=== PATIENT | female | born 1990 | race American Indian/Alaskan Native ===

== ENCOUNTER 2019-10-03 21:43 | Emergency (ER) | payer OTHER ==
[~2019-10-03] VITALS: Ht 180.3 cm; Wt 117.9 kg
--- OUTSIDE RECORDS SUMMARY | ~2019-10-03 | XMS | Encounter Summary ---
Demographics + + + | Address | [address] | | | [place] [address] | + + + | Home Phone | | + + + | Preferred Language | Unknown | + + + | Marital Status | Unknown | + + + | Yarsanism Affiliation | Unknown | + + + | Race | Unknown | + + + | Ethnic Group | Unknown | + + + Author + + + | Author | [facility] | | | and [place] | + + + | Organization | [facility] | | | and [place] | + + + | Address | Unknown | + + + | Phone | Unavailable | + + + Support + + +---------+ + | Name | Relationship | Address | Phone | + + +---------+ + | María Jorgensen | ECON | Unknown | | + + +---------+ + | María Jorgensen | ECON | Unknown | | + + +---------+ + Care Team Providers + +------+ + | Care Mix Chemist Name | Role | Phone | + +------+ + PCP | Unavailable | + +------+ + Encounter Details +--------+ + + + + | Date | Type | Department | Care Team | Description | +--------+ + + + + | 11/18/ | Orders Only | [facility] | Shannan Mtz S, | Lumbar radiculopathy | | 2013 | | 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 | + + +---------+ + + + + | Sex Assigned at | Date Recorded | | | | + + + | Not on file | | + + + documented as of this encounter Plan of Treatment Not on filedocumented as of this encounter Results FL EVY Lumbar Transforaminal (12/16/2013 1:18 PM PDT) + + | Specimen | + + | | + + + + + | Narrative | Performed At | + + + | 12/16/2013 Bilateral Transforaminal Epidural Steroid Injections | [facility] | | Diagnosis: Lumbar radiculopathy ICD-9 Code 724.4 Cher | [facility] | | Shana Patel presents to the fluoroscopy suite for | [facility] | | fluoroscopically-guided bilateral L5-S1 transforaminal epidural | - IMAGING | | steroid injections as part of conservative management for chronic | | | pain with lumbar radiculopathy and degenerative disk disease. After | | | informed consent was obtained, the patient lay in the prone position | | | on the fluoroscopy table. The areas were identified under | | | fluoroscopic guidance. The areas were prepped and draped in sterile | | | fashion. A 25-gauge, 1.5-inch needle was inserted into each region | | | and approximately 3 mL of buffered 1% lidocaine was infused. Then, a | | | 22-gauge spinal needle was inserted into the posterior superior | | | transforaminal space bilaterally and advanced into the epidural | | | space under fluoroscopic guidance. Confirmation into the epidural | | | space was obtained with infusion of approximately 1 mL of Omnipaque | | | contrast which showed epidural flow as well as nerve sheath flow. | | | Then, a combination of 2 mL of 1% lidocaine and 2 mL of 6 mg/mL | | | Celestone was infused, divided between the two sides. The patient | | | tolerated the procedure well without complications. Pre- and | | | post-procedure blood pressures were stable. The patient was given | | | verbal as well as written follow-up instructions. Prior to the | | | start of the procedure, the following were performed and/or | | | verified, including correct patient identity, correct site/side marked | | | and visible, agreement on the procedure to be done, correct patient | | | positioning and an accurate procedure consent form. Any safety | | | precautions based on clinical history and/or medication use have | | | been addressed. I personally performed the procedure above. | | | Estimated blood loss: Minimal Complications: None Findings: As | | | expected Anesthesia: Local 1% Lidocaine | | + + + + + | Procedure Note | + + | Jose J Morris MD - 12/16/2013 1:41 PM PDT 12/16/2013ilateral Transforaminal | | Epidural Steroid InjectionsDiagnosis: Lumbar radiculopathyICD-9 Code 724.4Camillerahul Saldana | | Amanda presents to the fluoroscopy suite for fluoroscopically-guided bilateral | | L5-S1 transforaminal epidural steroid injections as part of conservative management for | | chronic pain with lumbar radiculopathy and degenerative disk disease. After informed | | consent was obtained, the patient lay in the prone position on the fluoroscopy table. | | The areas were identified under fluoroscopic guidance. The areas were prepped and draped | | in sterile fashion. A 25-gauge, 1.5-inch needle was inserted into each region and | | approximately 3 mL of buffered 1% lidocaine was infused. Then, a 22-gauge spinal needle | | was inserted into the posterior superior transforaminal space bilaterally and advanced | | into the epidural space under fluoroscopic guidance. Confirmation into the epidural | | space was obtained with infusion of approximately 1 mL of Omnipaque contrast which | | showed epidural flow as well as nerve sheath flow. Then, a combination of 2 mL of 1% | | lidocaine and 2 mL of 6 mg/mL Celestone was infused, divided between the two sides. The | | patient tolerated the procedure well without complications. Pre- and post-procedure | | blood pressures were stable. The patient was given verbal as well as written follow-up | | instructions. Prior to the start of the procedure, the following were performed and/or | | verified, including correct patient identity, correct site/side marked and visible, | | agreement on the procedure to be done, correct patient positioning and an accurate | | procedure consent form. Any safety precautions based on clinical history and/or | | medication use have been addressed. I personally performed the procedure above.Estimated | | blood loss: MinimalComplications: NoneFindings: As expectedAnesthesia: Local 1% | | Lidocaine | + + + + + + + | Performing | Address | City/State/Zipcode | Phone Number | | Organization | | | | + + + + + | [facility] | [address] | [place] | [phone] | | [facility] | | [address] | | | - IMAGING | | | | + + + + + documented in this encounter Visit Diagnoses + + | Diagnosis | + + | Lumbar radiculopathy - Primary Thoracic or lumbosacral neuritis or radiculitis, | | unspecified | + + documented in this encounter"
--- OUTSIDE RECORDS SUMMARY | ~2019-10-03 | XMS | Encounter Summary ---
Demographics + + + | Address | [address] | | | [place] [address] | + + + | Home Phone | | + + + | Preferred Language | Unknown | + + + | Marital Status | Unknown | + + + | Buddhism Affiliation | Unknown | + + + | Race | Unknown | + + + | Ethnic Group | Unknown | + + + Author + + + | Author | [facility] [place] | | | and [place] | + + + | Organization | [facility] [place] | | | and [place] | [...] Team Providers + +------+ + | Care Substation Engineer Name | Role | Phone | + +------+ + PCP | Unavailable | + +------+ + Encounter Details +--------+ + + + + | Date | Type | Department | Care Team | Description | +--------+ + + + + | 12/02/ | Hospital | [place] [facility] | [facility] | | | 2014 | Encounter | [facility] | [address] | | | | | C[facility] [address] | [address] | | | | | [address] [place], [place] | [place] [address] | | | | | [address] | [phone] | | | | | [phone] | | | +--------+ + + + [...] + + documented as of this encounter Medications at Time of Discharge + + + +---------+--------+ + | Medication | Sig | Dispensed | Refills | Start | End Date | | | | | | Date | | + + + +---------+--------+ + | FERROUS SULFATE | by Does not apply | | 0 | | | | | route Daily. | | | | | + + + +---------+--------+ + | Glucosamine HCl | Take by mouth 2 | | 0 | | | | (GLUCOSAMINE PO) | times daily. | | | | | + + + +---------+--------+ + | NAPROXEN | 500 mg by Does not | | 0 | | | | | apply route 2 times | | | | | | | daily. | | | | | + + + +---------+--------+ + | Vincent 3-6-9 Fatty | Take by mouth 2 | | 0 | | | | Acids (OMEGA 3-6-9 | times daily. | | | | | | COMPLEX PO) | | | | | | + + + +---------+--------+ + | tizanidine | Take 2 mg by mouth | | 0 | | | | (ZANAFLEX) 2 MG | every 6 hours as | | | | | | tablet | needed. | | | | | + + + +---------+--------+ + documented as of this encounter Plan of Treatment Not on filedocumented as of this encounter Visit Diagnoses Not on filedocumented in this encounter"
--- OUTSIDE RECORDS SUMMARY | ~2019-10-03 | XMS | Encounter Summary ---
Demographics + + + | Address | [address] | | | [place] [address] | + + + | Home Phone | | + + + | Preferred Language | Unknown | + + + | Marital Status | Unknown | + + + | Worship Affiliation | Unknown | + + + | Race | Unknown | + + + | Ethnic Group | Unknown | + + + Author + + + | Author | [facility] | | | and [place] | + + + | Organization | [facility] | | | and [place] | [...] Team Providers + +------+ + | Care Fugitive Investigator Name | Role | Phone | + +------+ + | Ignacio Briggs PA-C | PCP | | + +------+ + Encounter Details +--------+ + + + + | Date | Type | Department | Care Team | Description | +--------+ + + + + | 07/02/ | Orders Only | [facility] | José Miguel Hernandez | | | 2018 | | [facility] | [address] | | | | [address] | [place] [address] | | | | | [place], [place] | [phone] | | | | | [address] | | | | | | [phone] | | | +--------+ + + + [...] Not on filedocumented as of this encounter Procedures + +--------+ + + + | Procedure Name | Priori | Date/Time | Associated Diagnosis | Comments | | | ty | | | | + +--------+ + + + | XR LUMBAR SPINE 4 + | Routin | 07/02/2018 | | Results for this | | VW | e | 10:41 AM | | procedure are in the | | | | PDT | | results section. | + +--------+ + + + documented in this encounter Results XR Lumbar Spine 4 + Vw (07/02/2018 10:41 AM PDT) + + | Specimen | + + | | + + + + + | Impressions | Performed At | + + + | Mild degenerative spondylosis of the lumbar spine with moderate to | | | severe decrease in disc height L5-S1. There is no significant | | | subluxation between the flexion and extension views. Signed by: | | | Clark Romero, Wade Sign Date/Time: 07/02/2018 5:00 PM | | + + + + + + | Narrative | Performed At | + + + | LUMBAR SPINE FOUR VIEWS INCLUDING BENDING VIEWS CLINICAL | | | INFORMATION: Chronic pain for ten years. COMPARISON: MRI LUMBAR | | | SPINE WO CONTRAST (03/15/2018); CRLSPINE (12/20/2017); FINDINGS: | | | There is normal-appearing alignment of the lumbar spine. There is | | | moderate to severe decrease in disc height L5-S1. There is mild | | | degenerative endplate spondylosis with spurring greatest at L5-S1. | | | There is mild degenerative facet spondylosis with hypertrophy. | | | Vertebral body height appears maintained. There is no significant | | | subluxation between the flexion and extension views. The visualized | | | sacral ala and ribs appear intact. | | + + + + + | Procedure Note | + + | Henry, Rad Conversion - 11/14/2018 2:07 PM PDT LUMBAR SPINE FOUR VIEWS INCLUDING | | BENDING VIEWSCLINICAL INFORMATION:Chronic pain for ten years.COMPARISON:MRI LUMBAR SPINE | | WO CONTRAST (03/15/2018); CRLSPINE (12/20/2017);FINDINGS:There is normal-appearing | | alignment of the lumbar spine. There ismoderate to severe decrease in disc height | | L5-S1. There is milddegenerative endplate spondylosis with spurring greatest at | | L5-S1.There is mild degenerative facet spondylosis with hypertrophy.Vertebral body | | height appears maintained. There is no significantsubluxation between the flexion and | | extension views. The visualizedsacral ala and ribs appear intact.IMPRESSION: Mild | | degenerative spondylosis of the lumbar spine with moderate tosevere decrease in disc | | height L5-S1. There is no significantsubluxation between the flexion and extension | | views.Signed by: Clark Romero KennethSign Date/Time: 07/02/2018 5:00 PM | |subluxation between the flexion and extension views. The visualized | |sacral ala and ribs appear intact. | |IMPRESSION: | |Mild degenerative spondylosis of the lumbar spine with moderate to | |severe decrease in disc height L5-S1. There is no significant | |subluxation between the flexion and extension views. | |Signed by: Clark Romero Kenneth | |Sign Date/Time: 07/02/2018 5:00 PM | + + documented in this encounter Visit Diagnoses Not on filedocumented in this encounter"
--- OUTSIDE RECORDS SUMMARY | ~2019-10-03 | XMS | Encounter Summary ---
Demographics + + + | Address | [address] | | | [place] [address] | + + + | Home Phone | | + + + | Preferred Language | Unknown | + + + | Marital Status | Unknown | + + + | Jain Affiliation | Unknown | + + + | Race | Unknown | + + + | Ethnic Group | Unknown | + + + Author + + + | Author | [facility] | | | and [place] | + + + | Organization | [facility] | | | and [place] | [...] Team Providers + +------+ + | Care Director Of Sales Name | Role | Phone | + +------+ + PCP | Unavailable | + +------+ + Reason for Visit + + + | Reason | Comments | + + + | Back Pain | mid to low back pain radiating to bilateral legs | + + + Evaluate & Treat (Routine) +--------+--------+ + + + + | Status | Reason | Specialty | Diagnoses / | Referred By | Referred To | | | | | Procedures | Contact | Contact | +--------+--------+ + + + + | Closed | | Physical | Diagnoses | [place], | Flakito Colon | | | | Medicine and | Low back | Ignacio Cárdenas, | Fatmata Moore MD [address] | | | | Rehabilitatio | pain | PA-C [address] | [address] | | | | n | | [place] | [place], | | | | | | [place] | [place] [address] | | | | | | [place], | Phone: | | | | | | [place] [address] | [phone] | | | | | | Phone: | Fax: | | | | | | [phone] | [phone] | | | | | | Fax: | | | | | | | [phone] | | +--------+--------+ + + + + Encounter Details +--------+---------+ + + + | Date | Type | Department | Care Team | Description | +--------+---------+ + + + | 11/04/ | Office | [facility] | Flakito Colon, | Lumbalgia (Primary | | 2013 | Visit | PHYSIATRY [address] | MD [address] | Dx); Degenerative | | | | [address] | [place] | lumbar disc; Lumbar | | | | [place] | [address] | radiculopathy; | | | | [address] | | Lumbar facet | | | | [phone] | | arthropathy; Morning | | | | | | joint stiffness of | | | | | | hand, bilateral | +--------+---------+ + + + Social History + +-------+ [...] + + documented as of this encounter Last Filed Vital Signs + + + + + | Vital Sign | Reading | Time Taken | Comments | + + + + + | Blood Pressure | 120/77 | 11/04/2013 9:21 AM | | | | | PDT | | + + + + + | Pulse | 63 | 11/04/2013 9:21 AM | | | | | PDT | | + + + + + | Temperature | - | - | | + + + + + | Respiratory Rate | 14 | 11/04/2013 9:21 AM | | | | | PDT | | + + + + + | Oxygen Saturation | - | - | | + + + + + | Inhaled Oxygen | - | - | | | Concentration | | | | + + + + + | Weight | 97.1 kg (214 lb) | 11/04/2013 9:21 AM | | | | | PDT | | + + + + + | Height | 180.3 cm (5' 11") | 11/04/2013 9:21 AM | | | | | PDT | | + + + + + | Body Mass Index | 29.85 | 11/04/2013 9:21 AM | | | | | PDT | | + + + + + documented in this encounter Patient Instructions Patient Instructions Flakito Colon MD - 11/04/2013 10:20 AM PDTContinue exercise as outl ined by physical therapy. Laboratory tests have been requested. Please go to the lab to complete your laboratory royce ting. The results of your laboratory testing will be reviewed at your next appointment. If your labratory results demonstrate any emergent results the clinic will contact you. Please attend the injection appointment with Jose J Morris MD. If his office has not co ntacted you within one week, to schedule the injection, please contact my clinic. Your inje ction will be performed at [facility]. Please take note of weather your pain is significantly reduced in the hours immediately following the injecti on. Return to the clinic in 6-8 weeks to review labs and response to injections. documented in this encounter Progress Notes Flakito Colon MD - 11/04/2013 10:22 AM PDTThis office note has been dictated. Job ID# [id number] signed by Flakito Colon MD at 11/04/2013 6:53 PM Barbra Gavin - 11/04/2013 9:22 AM PDTc/o mid to low back pain into bilateral legs. 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 Went to PT 02/2013-03/2013 which relieved pain, but w as suggested she follow up with a polyethylene combiner. Electronically signed by Barbra Vital at 02/2014 6:53 PM Flakito Redd MD - 11/04/2013 12:00 AM PDT [facility] [address] [place] [address] FAX: [phone] OFFICE VISIT PHYSICAL MEDICINE REHABILITATION CONSULT CONSULT REQUESTED BY: FARIBA Rodriguez. REPORTED CURRENT PRIMARY CARE PROVIDER: Chase Brigsg MD. DATE OF SERVICE: 11/04/2013. PATIENT IDENTIFICATION: A 23-year-old female with back pain. HISTORY OF PRESENT ILLNESS: Ms Patel was referred by Melony Hardin. Meolny Hardin has recently moved from the [facility]. Ms Patel reports that she anticip ates that her new primary care provider will be Chase Briggs MD. She indicates that she has had back pain since she was a teenager. She indicates that it carlson s always been mild on and off. She indicates that back pain has been acutely worse over the last 9 months. She indicates that pain has been constant over the last 9 months. Pain vari es in intensity. Pain is a 6/10 on a numerical pain scale. She indicates that she had physi tea therapy in 02/2013 with some benefit, but ultimately pain still has persisted. Pain is increased with sitting down and standing up, changing from position to position, and pain i s increased with reaching and twisting, pain is reduced with heat, ice, tramadol, Vicodin, muscle relaxers, and naproxen. She indicates that pain radiates from the back into both lower extremities. She indicates t hat her legs feel heavy and sore. She indicates that the physical therapist had seen her an d wanted her to pass along that she had a few beats of clonus in the left leg. She indicates that she has pain in the thighs bilaterally, forelegs and feet. She reports intermittent numbness and paresthesia in the toes of both feet. She reports a feeling of we akness, which she describes as fatigue in her leg. She denies bowel or bladder incontinence. She denies saddle anesthesia. She has had physical therapy. She has never had surgery, interventional injections, acupunc ture treatments for her back. She did try seeing a chiropractor for 2 to 3 months in 2011 w ithout substantial long-term pain relief for her back. She indicates that she would like to move away from taking any medications for her back pain. She indicates that she is looking for a fix, some way to treat her back pain and help it go away. She reports that she has also had joint pain and stiffness in her joints throughout the bod y. She reports that she has had hand joint stiffness. She indicates that all the joints in her fingers have been very stiff at times. She indicates that there have been days where th e stiffness is so great that she could not bend the fingers in the hands at all. She report s that when stiffness is greatest, it is usually in the morning and less towards the evenin g. She denies any warmth, redness, or swelling in the hand joints. She denies a family hist ory of rheumatoid arthritis. ALLERGIES: NO KNOWN DRUG ALLERGIES. CURRENT MEDICATIONS 1. Ferrous sulfate daily. 2. Glucosamine daily. 3. Naproxen 500 mg twice daily. 4. Tyler-3 fatty acids 2 times daily. 5. Zanaflex 2 mg q.8h. p.r.n. PAST MEDICAL HISTORY: She denies any medical problems. She denies history of high blood pr essure, high cholesterol, diabetes, thyroid disease, etc. PAST SURGICAL HISTORY: She has never had any back surgery. Only surgery has been extraction of wisdom teeth. She has never had tonsillectomy, appendectomy, etc. FAMILY MEDICAL HISTORY: Father's medical history is unknown. She is not in contact with fa Watsi, father is in his 50s. Mother is alive around age 48 with a history of diabetes, high cholesterol, and osteoporosis. Maternal grandmother had history of cervical cancer. 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 She does not smoke. She indicates that she may drink 2 alcoholic beverages per month at most. She denies use of illicit drugs. REVIEW OF SYSTEMS: Ms Patel denies nausea, vomiting, diarrhea, constipation, fev er, chills, shortness of breath, or chest pain. She denies skin breakdown or rash. All othe r review of systems negative. PHYSICAL EXAMINATION VITAL SIGNS: Heart rate 63, respiratory rate 14, blood pressure 120/77, weight 214 pounds, height 5 feet 11 inches. GENERAL: No acute distress. Alert and oriented to person, place, time, and situation. HEEN T: Extraocular muscles intact. Sclerae clear. NECK: Normal range of motion. Spurling's test negative. Axial loading test negative. HEART : Regular rate and rhythm. No murmurs, no gallops. LUNGS: Clear to auscultation. No wheezing, no crackles. ABDOMEN: Nontender. Positive for bowel sounds. Mild obesity. BACK: Tenderness to palpation over lumbar paraspinal muscles and lumbar bony spine. Seated straight leg raise positive b ilaterally. Raphael's test negative bilaterally. EXTREMITIES: Exam reveals no clubbing, cya nosis, or edema in all 4 extremities. There is some stiffness in the hand joints. No signif icant synovial thickening noted on today's examination in the proximal interphalangeal join ts. No osteophytes noted in distal interphalangeal joints. No nodules noted within the fore arms bilaterally. NEUROLOGICAL: Demonstrates intact memory, concentration, and speech. Cranial nerves intact. Sensory is reduced over L5 dermatome in both lower extremities. There is weakness in lower extremities with 4/5 ankle dorsiflexion, extensor hallucis longus, and knee flexion streng th bilaterally. There is 5/5 hip flexion, ankle plantar flexion, and knee extension in both lower extremities. Gait is steady, mildly antalgic. Romberg test negative. Coordination in tact in all 4 extremities. Muscle tone normal in major muscle groups of all 4 extremities. DATABASE: Thoracic spine x-rays, 10/2010, imaging personally reviewed by me, demonstrates minimal early degenerative disk disease, bone spur anterior at T12. Minimal nonreactive disk space narrowing at L5-S1. Lumbar spine MRI from 08/22/2013, imaging personally reviewed by me, demonstrates degenerat mary disk disease at L4-5 and L5-S1, with mild neural foraminal narrowing at L4-L5 and minim al narrowing at L5-S1. There is facet joint synovial swelling at L5-S1 bilaterally. ASSESSMENT 1. LUMBALGIA, ICD-9 724.2. 2. LUMBAR DEGENERATIVE DISK, GREATEST AT L5-S1 AND LESSER DEGREE AT L4-5, ICD-9 722.52. 3. CLINICAL PRESENTATION OF BILATERAL L5 RADICULOPATHY, ICD-9 724.4. 4. LUMBAR FACET ARTHRITIS AT L5-S1 BILATERALLY, ICD-9 721.3. 5. STIFFNESS OF THE HAND JOINTS BILATERALLY, WORSE IN THE MORNING, ICD-9 719.54. PLAN: Ms Patel's reported pain throughout joints in the body, especially hand s tiffness, worse in the morning, raises question of rheumatoid arthritis. Individuals with r heumatoid arthritis may be more likely to have back pain, facet joint swelling, etc. At this time, I am requesting laboratory workup for rheumatoid arthritis. Laboratory testin g will include rheumatoid factor, anti-CCP, DILLAN, sedimentation rate, CMP, and CBC. She has been asked to continue exercises as outlined by previous physical therapy. We discu ssed that this can be beneficial over time at stabilizing lumbar back with core strengtheni ng. It is felt that a majority of her symptoms are radicular in nature with numbness and tingl ing into the legs, weakness in the lower extremities, pain radiating from back to the lower extremities. For this reason, she will have diagnostic and therapeutic bilateral L5-S1 tr ansforaminal epidural steroid injections. These should capture and treat any radicular symp toms coming from L4 or L5 levels. She will return to the clinic in 6 to 8 weeks to review the results of her laboratory testi ng, continue home exercise program, and epidural steroid injections. If these injections ar e not helpful, future treatment considerations may include lumbar facet injections at L5-S1 for lumbar facet arthritis. If laboratory tests returned as abnormal, may request hand x-r ays and rheumatology consult. Today, we discussed weight loss through diet and exercise. We discussed weight and its impa ct on degenerative disk disease. She was discouraged from ever starting a life of smoking. We discussed tobacco use and its impact on degenerative disk disease. Greater than 50 minutes was spent avie-hi-gljl today with Ms Patel, over half of which was spent formulating and discussing her medical treatment plan. Thank you for allowing me to be involved in the care of your patient. If you have any quest ions regarding the care of Ms Patel, please do not hesitate to call. CC: Melony Hardin, [facility] Flakito Colon Jr, MD BANDY / KMT JOB #: [id number] signed by Flakito Colon MD at 11/05/2013 2:35 PM PDTdocumen arsalan in this encounter Miscellaneous Notes Miscellaneous - ONBASE SCAN [facility] - 11/04/2013 12:00 AM PDT iscellaneous - ONBASE SCAN [facility] - 11/04/2013 12:00 AM PDTEle ctronically signed by Asim Saravia at 11/10/2013 2:01 PM PDTdocumented in this encounter Plan of Treatment + +------+--------+ + + | Name | Type | Priori | Associated Diagnoses | Order Schedule | | | | ty | | | + +------+--------+ + + | Rheumatoid Factor, | Lab | Routin | Morning joint | Expected: | | Quant | | e | stiffness of hand, | 11/04/2013, Expires: | | | | | bilateral | 11/04/2014 | + +------+--------+ + + | Cyclic Citrullinated | Lab | Routin | Morning joint | 1 Occurrences | | Peptide Ab, IgG | | e | stiffness of hand, | starting 11/04/2013 | | | | | bilateral | until 11/04/2014 | + +------+--------+ + + | Sedimentation Rate | Lab | Routin | Morning joint | Expected: | | | | e | stiffness of hand, | 11/04/2013, Expires: | | | | | bilateral | 11/04/2014 | + +------+--------+ + + | DILLAN Screen, Qual, | Lab | Routin | Morning joint | 1 Occurrences | | Reflex | | e | stiffness of hand, | starting 11/04/2013 | | | | | bilateral | until 11/04/2014 | + +------+--------+ + + | CBC with | Lab | Routin | Morning joint | Expected: | | Differential | | e | stiffness of hand, | 11/04/2013, Expires: | | | | | bilateral | 11/04/2014 | + +------+--------+ + + | Comprehensive | Lab | Routin | Morning joint | Expected: | | Metabolic Panel | | e | stiffness of hand, | 11/04/2013, Expires: | | | | | bilateral | 11/04/2014 | + +------+--------+ + + documented as of this encounter Visit Diagnoses + + | Diagnosis | + + | Lumbalgia - Primary Lumbago | + + | Degenerative lumbar disc Degeneration of lumbar or lumbosacral intervertebral disc | + + | Lumbar radiculopathy Thoracic or lumbosacral neuritis or radiculitis, unspecified | + + | Lumbar facet arthropathy Lumbosacral spondylosis without myelopathy | + + | Morning joint stiffness of hand, bilateral | + + documented in this encounter
--- OUTSIDE RECORDS SUMMARY | ~2019-10-03 | XMS | Encounter Summary ---
Demographics + + + | Address | [address] | | | [place] [address] | + + + | Home Phone | | + + + | Preferred Language | Unknown | + + + | Marital Status | Unknown | + + + | Catholic Affiliation | Unknown | + + + | Race | Unknown | + + + | Ethnic Group | Unknown | + + + Author + + + | Author | [facility] | | | and [place] | + + + | Organization | [facility] | | | and [place] | [...] Team Providers + +------+ + | Care Land Degradation Analyst Name | Role | Phone | + +------+ + | Ignacio Briggs PA-C | PCP | | + +------+ + Encounter Details +--------+ + + + + | Date | Type | Department | Care Team | Description | +--------+ + + + + | 07/02/ | Orders Only | [facility] | Conversion | | | 2019 | | CONVERSION [address] | Transaction, | | | | | [address] | Provider Unknown | | | | | [place], [place] | [phone] | | | | | [address] | | | | | | [phone] | | | +--------+ + + + [...]
--- OUTSIDE RECORDS SUMMARY | ~2019-10-03 | XMS | Encounter Summary ---
Demographics + + + | Address | [address] | | | [place] [address] | + + + | Home Phone | | + + + | Preferred Language | Unknown | + + + | Marital Status | Unknown | + + + | Orthodoxy Affiliation | Unknown | + + + | Race | Unknown | + + + | Ethnic Group | Unknown | + + + Author + + + | Author | [facility] | | | and [place] | + + + | Organization | [facility] | | | and [place] [...] Team Providers + +------+ + | Care Customer Service Security Officer Name | Role | Phone | + +------+ + PCP | Unavailable | + +------+ + Reason for Visit +--------+--------+ + | Reason | Onset | Comments | | | Date | | +--------+--------+ + | Other | 11/06/ | | | | 2014 | | +--------+--------+ + Encounter Details +--------+ + + + + | Date | Type | Department | Care Team | Description | +--------+ + + + + | 11/06/ | Telephone | [facility] | Flakito Colon, | Other | | 2013 | | PHYSIATRY [address] | MD [address] | | | | | [address] | [place], [place] | | | | | [place], [place] | [address] | | | | | [address] | | | | | | [phone] | | | +--------+ + + + [...] + + documented as of this encounter Miscellaneous Notes Telephone Encounter - Mali Mackenzie RN - 11/06/2013 5:01 PM PDTFaxed lab orders [facility] Called pt to let her know. Left VM elephone Encounter - Fioan Rojas - 11/06/2013 11:09 AM PDTPatient called to ask if she can have her lab orders sent to the [facility]. She would also like to know what the next step is after she gets her labs drawn. She's hoping to schedule a cortisone injection ones the results from the labs are back. Please ca ll. [phone] signed by Fiona Rojas at 11/06/2013 11:11 AM PDTdocumented in this encounter Plan of Treatment Not on filedocumented as of this encounter Visit Diagnoses Not on filedocumented in this encounter"
--- OUTSIDE RECORDS SUMMARY | ~2019-10-03 | XMS | Encounter Summary ---
Demographics + + + | Address | [address] | | | [place] [address] | + + + | Home Phone | | + + + | Preferred Language | Unknown | + + + | Marital Status | Unknown | + + + | Caodaism Affiliation | Unknown | + + + | Race | Unknown | + + + | Ethnic Group | Unknown | + + + Author + + + | Author | [facility] | | | and [place] | + + + | Organization | [facility] | | | and [place] [...] Team Providers + +------+ + | Care Monorail Operator Name | Role | Phone | + +------+ + PCP | Unavailable | + +------+ + Encounter Details +--------+ + + + + | Date | Type | Department | Care Team | Description | +--------+ + + + + | 11/25/ | Hospital | [facility] | | | 2013 | Encounter | [facility]Y | MD [address] | | | | | [address] | [place] | | | | | [place] | [address] | | | | | [address] | [phone] | | | | | [phone] | | | +--------+ + + + + Social History + +-------+ +--------+------+ | Tobacco Use | Types | Packs/Day | Years | Date | | | | | Used | | + +-------+ +--------+------+ | Never Assessed | | | | | + +-------+ +--------+------+ + + + | Sex Assigned at | Date Recorded | | | | + + + | Not on file | | + + + documented as of this encounter Plan of Treatment Not on filedocumented as of this encounter Visit Diagnoses Not on filedocumented in this encounter"
--- OUTSIDE RECORDS SUMMARY | ~2019-10-03 | XMS | Encounter Summary ---
Demographics + + + | Address | [address] | | | [place] [address] | + + + | Home Phone | | + + + | Preferred Language | Unknown | + + + | Marital Status | Unknown | + + + | Restoration Affiliation | Unknown | + + + | Race | Unknown | + + + | Ethnic Group | Unknown | + + + Author + + + | Author | [facility] | | | and [place] | + + + | Organization | [facility] | | | and [place] | [...] Team Providers + +------+ + | Care Compensation And Hris Analyst Name | Role | Phone | + +------+ + PCP | Unavailable | + +------+ + Reason for Visit Service/Procedure (Routine) +--------+--------+ + + + + | Status | Reason | Specialty | Diagnoses / | Referred By | Referred To | | | | | Procedures | Contact | Contact | +--------+--------+ + + + + | Closed | | Radiology | Diagnoses | | [facility] | | | | | Thoracic or | [place], | [address] | | | | | lumbosacral | Jose J Haywood MD | [place], | | | | | neuritis or | [address] | [place] | | | | | | [place] | [address] | | | | | radiculitis, | [place] | Phone: | | | | | unspecified | [address] | [phone] | | | | | Procedures | Phone: | Fax: | | | | | [place] INJECT | [phone] | [phone] | | | | | ANES/STEROID | Fax: | | | | | | FORAMEN | [phone] | | | | | | LUMBAR/SACRA | | | | | | | L W IMG | | | | | | | GUIDE ,1 | | | | | | | LEVEL [place] | | | | | | | TRIAMCINOLON | | | | | | | E ACET INJ | | | | | | | NOS, 10 MG | | | | | | | Bilateral | | | | | | | L5-S1 TFESI | | | | | | | Referral | | | | | | | from | | | | | | | Isaiah Zhao | | | +--------+--------+ + + + + Encounter Details +--------+ + + + + | Date | Type | Department | Care Team | Description | +--------+ + + + + | 12/16/ | Hospital | [facility] | Jose J Morris | Lumbar radiculopathy | | 2013 | Encounter | MED CTR XRAY [address] | T, [address] | | | | | [address] [place] | [address] [place], [place] | | | | | [place] [address] | [address] | | | | | [phone] | | | | | | | [employer], [place] | | | | | | [place] | | +--------+ + + + + [...] this encounter Last Filed Vital Signs + +---------+ + + | Vital Sign | Reading | Time Taken | Comments | + +---------+ + + | Blood Pressure | 157/87 | 12/16/2013 1:31 PM | | | | | PDT | | + +---------+ + + | Pulse | 62 | 12/16/2013 1:31 PM | | | | | PDT | | + +---------+ + + | Temperature | - | - | | + +---------+ + + | Respiratory Rate | - | - | | + +---------+ + + | Oxygen Saturation | - | - | | + +---------+ + + | Inhaled Oxygen | - | - | | | Concentration | | | | + +---------+ + + | Weight | - | - | | + +---------+ + + | Height | - | - | | + +---------+ + + | Body Mass Index | - | - | | + +---------+ + + documented in this encounter Medications at Time of Discharge [...] | + + + +---------+--------+ + | Deaver 3-6-9 Fatty | Take by mouth 2 [...] +---------+--------+ + documented as of this encounter Miscellaneous Notes Miscellaneous - DEVYN BARRAGAN - 01/05/2014 12:00 AM PDT documented in this encounter Plan of Treatment Not on filedocumented as of this encounter Procedures + +--------+ + + + | Procedure Name | Priori | Date/Time | Associated Diagnosis | Comments | | | ty | | | | + +--------+ + + + | FL EPIDURAL STEROID | Routin | 12/16/2013 | Lumbar | Results for this | | INJECTION LUMBAR | e | 1:18 PM | radiculopathy | procedure are in the | | TRANSFORAMINAL | | PDT | | results section. | + +--------+ + + + documented in this encounter Results FL EVY Lumbar Transforaminal (12/16/2013 1:18 PM PDT) + + | Specimen | + + | | + + + + + | Narrative | Performed At | + + + | 12/16/2013 Bilateral Transforaminal Epidural Steroid Injections | [facility] | | Diagnosis: Lumbar radiculopathy ICD-9 Code 724.4 [address] | [facility] | | Shana Patel presents to the fluoroscopy suite for [facility] | | fluoroscopically-guided bilateral L5-S1 [...] | Epidural Steroid InjectionsDiagnosis: Lumbar radiculopathyICD-9 Code 724.4Cher Saldana | | Amanda presents to the [...] | + + + + + | [facility] | [address] | [place] | [phone] | | [facility] | | [address] | | | - IMAGING | | | | + + + + + documented in this encounter Visit Diagnoses + + | Diagnosis | + + | Lumbar radiculopathy Thoracic or lumbosacral neuritis or radiculitis, unspecified | + + documented in this encounter Administered Medications + +--------+ +-------+------+ + | Medication Order | MAR | Action | Dose | Rate | Site | | | Action | Date | | | | + +--------+ +-------+------+ + | betamethasone (CELESTONE | Given | 12/17/19 | 12 mg | | Other | | SOLUSPAN) injection 12 mg 12 mg, | | 14 1:30 | | | (Comment | | Intramuscular, EVERY 24 HOURS | | PM PDT | | | ) | | INTERVAL, First dose on Sun | | | | | | | 12/16/13 at 1330, For 2 doses, | | | | | | | Shake well. Not for IV use., | | | | | | + +--------+ +-------+------+ + +---+---+ | | | +---+---+ + +-------+ +-------+---+---+ | iohexol (OMNIPAQUE 300) 300 | Given | 12/17/19 | 4 mLs | | | | mg/mL injection 4 mL 4 mL, | | 14 1:30 | | | | | INTRATHECAL, ONCE, 12/16/13 at | | PM PDT | | | | | 1330, For 1 dose | | | | | | + +-------+ +-------+---+---+ +---+---+ | | | +---+---+ + +-------+ +-------+---+ + | lidocaine 1% injection 5 mL 5 | Given | 12/17/19 | 5 mLs | | Other | | mL, Intradermal, ONCE, Tue | | 14 1:30 | | | (Comment | | 12/16/13 at 1330, For 1 dose | | PM PDT | | | ) | + +-------+ +-------+---+ + +---+---+ | | | +---+---+ + +-------+ +-------+---+---+ | sodium bicarbonate (NEUT) 4% | Given | 12/17/19 | 2 mLs | | | | injection 2 mL 2 mL, Topical, | | 14 1:30 | | | | | ONCE, 12/16/13 at 1330, For 1 | | PM PDT | | | | | dose | | | | | | + +-------+ +-------+---+---+ +---+---+ | | | +---+---+ documented in this encounter"
--- OUTSIDE RECORDS SUMMARY | ~2019-10-03 | XMS | Encounter Summary ---
Demographics + + + | Address | [address] | | | [place] [address] | + + + | Home Phone | | + + + | Preferred Language | Unknown | + + + | Marital Status | Unknown | + + + | Protestant Affiliation | Unknown | + + + | Race | Unknown | + + + | Ethnic Group | Unknown | + + + Author + + + | Author | [facility] | | | and [place] | + + + | Organization | [facility] | | | and [place] [...] Team Providers + +------+ + | Care Roading Engineer Name | Role | Phone | + +------+ + | Ignacio Briggs PA-C | PCP | | + +------+ + Reason for Visit + + + | Reason | Comments | + + + | Back Pain | | + + + Encounter Details +--------+---------+ + + + | Date | Type | Department | Care Team | Description | +--------+---------+ + + + | 03/10/ | Office | [facility] | Flakito Colon, | Lumbalgia (Primary | | 2013 | Visit | PHYSIATRY [address] | MD [address] | Dx); Lumbar facet | | | | [address] | [place] | arthropathy | | | | [place] | [address] | | | | | [address] | | | | | | [phone] | | | +--------+---------+ + + + Social History [...] + + + | Blood Pressure | - | - | | + + + + + | Pulse | 78 | 03/10/2014 8:30 AM | | | | | PST | | + + + + + | Temperature | - | - | | + + + + + | Respiratory Rate | 12 | 03/10/2014 8:30 AM | | | | | PST | | + + + + + | Oxygen Saturation | - | - | | + + + + + | Inhaled Oxygen | - | - | | | Concentration | | | | + + + + + | Weight | 93 kg (205 lb) | 03/10/2014 8:30 AM | | | | | PST | | + + + + + | Height | 180.3 cm (5' 11") | 03/10/2014 8:30 AM | | | | | PST | | + + + + + | Body Mass Index | 28.59 | 03/10/2014 8:30 AM | | | | | PST | | + + + + + documented in this encounter Patient Instructions Patient Instructions Flakito Colon MD - 03/10/2014 9:27 AM PSTPlease attend the injecti on appointment with Jose J Morris MD. If his office has not contacted you within one [facility], to schedule the injection, please contact my clinic. Your injection will be performed at [facility]. Please take note of weather your pain is si gnificantly reduced in the hours immediately following the injection. Please follow up with the dice manager to review your lab tests. Return to the clinic in 2 months. documented in this encounter Progress Notes Flakito Colon MD - 03/10/2014 9:28 AM PSTThis office note has been dictated. Job ID# [id number] signed by Flakito Colon MD at 03/10/2014 12:08 PM [facility], Flakito Moore MD - 03/10/2014 12:00 AM [facility] [address] [place] [address] [place] [address] FAX: [phone] OFFICE VISIT PHYSICAL MEDICINE REHABILITATION PROGRESS NOTE PRIMARY CARE PROVIDER Ignacio Briggs PA-C. DATE OF SERVICE: 03/10/2014. PATIENT IDENTIFICATION: A 24-year-old female with low back pain and diffuse joint pain. HISTORY OF PRESENT ILLNESS: Ms. Patel was last seen by me 10/2013. At that time it was noted that she had widespread joint pain. She was sent for laboratory tests to evalu ate for rheumatologic disease. She had rheumatoid factor, anti-CCP, DILLAN, sedimentation rate , CMP, CBC. Her laboratory tests were reviewed with her today. Laboratory tests were unrema rkable with the exception of one value. She had elevated histamine antibody. This can be se en in systemic lupus erythematous. However, other lupus testing was negative. DILLAN was negat mary. Double-stranded DNA antibody was negative. Centromere antibody also negative. Sclero b domi antibody negative. C- reactive protein was less than 5, which is normal. She had no oth er positive inflammatory markers. She reports that she has rheumatology consultation prasanna almanza and requested by her primary doctor. Ignacio Briggs PA-C. She had bilateral L5-S1 transforaminal epidural steroid injections for clinical presentatio n of bilateral L5 radiculopathy. She had these injections in November. She indicates that the injections offered her substantial pain relief. Unfortunately, the pain relief only las arsalan 1 month and then symptoms returned. She denies any numbness, paresthesia or weakness in the lower extremities at this time. She reports persisting centralized low back pain. Back pain is constant in timing but varies in intensity. She reports that pain is minimal when she first wakes up, a 0-1/10 on a numerical pain scale. She indicates that pain is a 5-6/10 in the evening. She indicates that pain is increased by physical activity. Pain is reduced by ice, nonsteroidal anti-inflammatory medications, hydrocodone, heat and chiropractic adj ustment. She indicates that pain in the central low back does radiate into the buttock and the thighs, but not beyond the knee. She indicates that pain is increased with back extensi on, as well as prolonged back forward flexion. ALLERGIES: NO KNOWN DRUG ALLERGIES. CURRENT MEDICATIONS 1. Ferrous sulfate. 2. Hydrocodone 7.5/325 1 tablet q.6h. p.r.n. 3. Naproxen 500 mg twice daily. 4. Lindley-3 fatty acids daily. REVIEW OF SYSTEMS Ms. Patel currently denies nausea, vomiting, diarrhea, constipation, fever, chil ls, shortness of breath, or chest pain. Denies skin breakdown or rash. All other review of systems negative. PHYSICAL EXAMINATION VITAL SIGNS: Heart rate 78, respiratory rate 12, blood pressure not evaluated today. Weigh t 205 pounds, height 5 foot 11 inches. GENERAL: In no acute distress. Alert and oriented to person, place, time and situation. HE ENT: Extraocular muscles intact. Sclerae are clear. EXTREMITIES: Exam reveals no clubbing, cyanosis or edema in all 4 extremities. BACK: [place] demonstrates tenderness to palpation over the approximate level of L5-S1. Lumbar fa cet loading with back extension positive. Seated straight leg raise negative. Raphael's royce t negative. NEUROLOGICAL: Exam demonstrates intact sensation, strength and reflexes in lower extremitie s. Cranial nerves intact. Memory intact. Speech normal. DATABASE: Lumbar MRI, imaging personally reviewed by me from 08/22/2013 demonstrates mild degenerative disk disease. There is noted fluid and swelling in the synovial joints at L5-S1 bilaterally. Laboratory testing is from 11/11/2013. DILLAN is less than 1:40 ratio. Anti-CCP is negative. Histamine antibody is positive at greater than 2.5. Metabolic profile and the CBC are unrem arkable. IMPRESSION 1. LUMBALGIA, ICD-9 724.2. 2. LUMBAR FACET ARTHRITIS AT L5-S1 BILATERALLY, ICD-9 721.3. 3. LUMBAR RADICULITIS - RESOLVED. 4. HISTAMINE ANTIBODY POSITIVE. PLAN: Ms. Patel continues to have low back pain centralized, likely related to lumbar facet arthritis. She will have diagnostic and therapeutic bilateral L5-S1 facet stero id injections under fluoroscopic guidance. Hopefully, this will help confirm diagnosis as w ell as reduce pain. She will return to the clinic in 2 months to review her response to the se injections. She already has rheumatology consult pending regarding the results of her l aboratory testing. Thank you for allowing me to be involved in the care of your patient. If you have any quest ions regarding the care of Ms. Patel, please do not hesitate to call. Flakito Colon Jr, MD GEM / PAP JOB #: [id number] cc: HONORIO Perales-C P STdocumented in this encounter Plan of Treatment Not on filedocumented as of this encounter Visit Diagnoses + + | Diagnosis | + + | Lumbalgia - Primary Lumbago | + + | Lumbar facet arthropathy Lumbosacral spondylosis without myelopathy | + + documented in this encounter
--- OUTSIDE RECORDS SUMMARY | ~2019-10-03 | XMS | Clinical Summary ---
Demographics + + + | Address | [address] | | | [place] [address] | + + + | Home Phone | | + + + | Preferred Language | Unknown | + + + | Marital Status | Unknown | + + + | Oriental Orthodox Affiliation | Unknown | + + + | Race | Unknown | + + + | Ethnic Group | Unknown | + + + Author + + + | Author | [facility] | | | and [place] | + + + | Organization | [facility] | | | and [place] | [...] Team Providers + +------+ + | Care Sas Administrator Name | Role | Phone | + +------+ + | Ignacio Briggs PA-C | PCP | | + +------+ + Allergies No Known Allergies Medications + + + +---------+------+------+-------+ | Medication | Sig | Dispensed | Refills | Star | End | Statu | | | | | | t | Date | s | | | | | | Date | | | + + + +---------+------+------+-------+ | NAPROXEN | 500 mg by Does not | | 0 | | | Activ | | | apply route 2 times | | | | | e | | | daily. | | | | | | + + + +---------+------+------+-------+ | FERROUS SULFATE | by Does not apply | | 0 | | | Activ | | | route Daily. | | | | | e | + + + +---------+------+------+-------+ | Criders 3-6-9 Fatty | Take by mouth 2 | | 0 | | | Activ | | Acids (OMEGA 3-6-9 | times daily. | | | | | e | | COMPLEX PO) | | | | | | | + + + +---------+------+------+-------+ | Glucosamine HCl | Take by mouth 2 | | 0 | | | Activ | | (GLUCOSAMINE PO) | times daily. | | | | | e | + + + +---------+------+------+-------+ | tizanidine | Take 2 mg by mouth | | 0 | | | Activ | | (ZANAFLEX) 2 MG | every 6 hours as | | | | | e | | tablet | needed. | | | | | | + + + +---------+------+------+-------+ | | Take 1 tablet by | | 0 | | | Activ | | HYDROcodone-acetamin | mouth every 6 hours | | | | | e | | ophen (NORCO) | as needed. | | | | | | | 7.5-325 mg per | | | | | | | | tablet | | | | | | | + + + +---------+------+------+-------+ | | Take by mouth. | | 0 | 04/0 | | Activ | | Amphetamine-Dextroam | | | | 9/20 | | e | | phetamine (ADDERALL | | | | 19 | | | | PO) | | | | | | | + + + +---------+------+------+-------+ | celecoxib | Take 100 mg by mouth | | 0 | 04/0 | | Activ | | (CELEBREX) 100 mg | 2 (two) times | | | 9/20 | | e | | capsule | daily. | | | 19 | | | + + + +---------+------+------+-------+ | sertraline | Take 100 mg by mouth | | 0 | 04/0 | | Activ | | (ZOLOFT) 100 mg | daily. | | | 9/20 | | e | | tablet | | | | 19 | | | + + + +---------+------+------+-------+ | cholecalciferol | Take 1,000 Units by | | 0 | 04/0 | | Activ | | (VITAMIN D-3) 1,000 | mouth daily. | | | 9/20 | | e | | units capsule | | | | 19 | | | + + + +---------+------+------+-------+ | ferrous sulfate | Take 220 mg by mouth | | 0 | 04/0 | | Activ | | 220 mg (44 mg | daily. | | | 9/20 | | e | | elemental iron)/5 mL | | | | 19 | | | | liquid | | | | | | | + + + +---------+------+------+-------+ Active Problems No known active problems Family History + + +------+ + | Medical History | Relation | Name | Comments | + + +------+ + | Alcohol abuse | Father | | | + + +------+ + | Arthritis | Father | | | + + +------+ + | Diabetes | Father | | | + + +------+ + | Diabetes, NIDDM | Father | | | + + +------+ + | High blood pressure | Father | | | + + +------+ + | Alcohol abuse | Mother | | | + + +------+ + | Arthritis | Mother | | | + + +------+ + | Diabetes | Mother | | | + + +------+ + | Diabetes, NIDDM | Mother | | | + + +------+ + | High blood pressure | Mother | | | + + +------+ + + +------+--------+ + | Relation | Name | Status | Comments | + +------+--------+ + | Father | | | | + +------+--------+ + | Mother | | | | + +------+--------+ + Social History + +-------+ +--------+------+ | [...] on file | | + + + Last Filed Vital Signs + + + + + | Vital Sign | Reading | Time Taken | Comments | + + + + + | Blood Pressure | 138/88 | 07/02/2018 10:15 AM | | | | | PDT [...] + + + + | Weight | 116.4 kg (256 lb 9.6 | 07/02/2018 10:15 AM | | | | oz) | PDT | | + + + + + | Height | 180.3 cm (5' 11") | 07/02/2018 10:15 AM | | | | | PDT | | + + + + + | Body Mass Index | 35.79 | 07/02/2018 10:15 AM | | | | | PDT | | + + + + + Plan of Treatment + + + + + | Health Maintenance | Due Date | Last | Comments | | | | Done | | + + + + + | Cervical Cancer | | | | | Screening (Pap) | 9 | | | + + + + + | Vaccine: Influenza | | 02/27/20 | | | (#1) | 0 | 19, | | | | | 12/04/19 | | | | | 19, | | | | | 12/21/19 | | | | | 18, | | | | | Addition | | | | | al | | | | | history | | | | | exists | | + + + + + | Vaccine: | | 12/21/19 | | | Dtap/Tdap/Td (8 - | 8 | 18, | | | Td) | | 11/18/19 | | | | | 08, | | | | | 12/17/19 | | | | | 02, | | | | | Addition | | | | | al | | | | | history | | | | | exists | | + + + + + Results Not on filefrom Last 3 Months Insurance + +--------+ +--------+ +---------+--------+ | Payer | Benefi | Subscriber | Effect | Phone | Address | Type | | | t Plan | ID | mary | | | | | | / | | Dates | | | | | | Group | | | | | | + +--------+ +--------+ +---------+--------+ | HEALTHCOMP | HEALTH | [id number] | | [phone] | | PPO | | | COMP | | 014-Pr | 7 | | | | | FIRST | | esent | | | | | | CHOICE | | | | | | + +--------+ +--------+ +---------+--------+ | HEALTH | IHS | [id number] | | | | Indemn | | SERVICE | YELLOW | | 014-Pr | | | ity | | | HAWK | | esent | | | | + +--------+ +--------+ +---------+--------+ + +--------+ +--------+ + + | Guarantor Name | Accoun | Relation to | Date | Phone | Billing Address | | | t Type | Patient | of | | | | | | | | | | + +--------+ +--------+ + + | [place] | Person | Self | [birth year] | [address] | | Cher Pearson | [place] | | 1989 | [phone] | [place] [address] | | | jonathan | | | 4 (Home) | | + +--------+ +--------+ + + Advance Directives + + + + + | Type | Date Recorded | Patient | Explanation | | | | Gas Maker Helper | | + + + + + | Power of | | | | | Snuff Grinder | | | | + + + + + | Advance | 12/16/2013 12:32 | | | | Directive | PM | | | + + + + +
--- OUTSIDE RECORDS SUMMARY | ~2019-10-03 | XMS | Encounter Summary ---
Demographics + + + | Address | [address] | | | [place] [address] | + + + | Home Phone | | + + + | Preferred Language | Unknown | + + + | Marital Status | Unknown | + + + | Anglican Affiliation | Unknown | + + + | Race | Unknown | + + + | Ethnic Group | Unknown | + + + Author + + + | Author | [facility] | | | and [place] | + + + | Organization | [facility] | | | and [place] | [...] Team Providers + +------+ + | Care Guide Changer Name | Role | Phone | + +------+ + | Ignacio Briggs PA-C | PCP | | + +------+ + Encounter Details +--------+ + + + + | Date | Type | Department | Care Team | Description | +--------+ + + + + | 03/23/ | Hospital | [facility] | Conversion | Diagnosis unknown | | 2018 | Encounter | CONVERSION [address] | Transaction, | | | | | [address] | Provider Unknown | | | | | [place], [place] | | | | | | [phone] | (Fax) | | | | | [phone] | | | +--------+ + + + [...] | + + + +---------+--------+ + | | Take 1 tablet by | | 0 | | | | HYDROcodone-acetamin | mouth every 6 hours | | | | | | ophen (NORCO) | as needed. | | | | | | 7.5-325 mg per | | | | | | | tablet | | | | | | + + + +---------+--------+ + | NAPROXEN | 500 mg by Does not | | 0 | | | | | apply route 2 times | | | | | | | daily. | | | | | + + + +---------+--------+ + | [place] 3-6-9 Fatty | Take by mouth 2 [...] | + +--------+ + + + | MRI LUMBAR SPINE WO | Routin | 03/15/2018 | | Results for this | | CONTRAST | e | 3:10 AM | | procedure are in the | | | | PST | | results section. | + +--------+ + + + documented in this encounter Results MRI Lumbar Spine wo Contrast (03/15/2018 3:10 AM PST) + + | Specimen | + + | | + + + + + | Narrative | Performed At | + + + | This is a non-reportable procedure without a radiologist report and | | | is used for image storage only | | + + + + + | Procedure Note | + + | Maxwell Figueroa - 11/06/2018 11:49 AM PDT This is a non-reportable procedure | | without a radiologist report and isused for image storage only | + + documented in this encounter Visit Diagnoses + + | Diagnosis | + + | Diagnosis unknown Other unknown and unspecified cause of morbidity or mortality | + + documented in this encounter"
--- OUTSIDE RECORDS SUMMARY | ~2019-10-03 | XMS | Encounter Summary ---
Demographics + + + | Address | [address] | | | [place] [address] | + + + | Home Phone [...] + + + | Author | [facility] | | | and [place] | + + + | Organization | [facility] | | | and [...] Team Providers + +------+ + | Care Tractor Driver Teamster Name | Role | Phone | + +------+ + | Ignacio Briggs PA-C | PCP | | + +------+ + Encounter Details +--------+ + + + + | Date | Type | Department | Care Team | Description | +--------+ + + + + | 07/17/ | Imaging | [facility] | Provider, | | | 2019 | Exam | MED CTR EXTERNAL | [address] | | | | | IMAGING [address] | [address] | | | | | [address] | [place] [address] | | | | | [place] [address] | | | | | | [phone] | | | +--------+ + + + [...] MRI LUMBAR SPINE WO | Routin | 08/22/2013 | | Results for this | | CONTRAST | e | 12:00 AM | | procedure are in the | | | | PDT | | results section. | + +--------+ + + + documented in this encounter Results MRI Lumbar Spine wo Contrast (08/22/2013 12:00 AM PDT) + + | Specimen | + + | | + + + + + | Narrative | Performed At | + + + | External films for comparison only | [facility] | | | | | No results will be in the chart. | | + + + + +---------+ + + | Performing | Address | City/State/Zipcode | Phone Number | | Organization | | | | + +---------+ + + | [facility] | | | | + +---------+ + + documented in this encounter Visit Diagnoses Not on filedocumented in this encounter"
--- OUTSIDE RECORDS SUMMARY | ~2019-10-03 | XMS | Encounter Summary ---
Demographics + + + | Address | [address] | | | [place] [address] | + + + | Home Phone | | + + + | Preferred Language | Unknown | + + + | Marital Status | Unknown | + + + | Evangelical Affiliation | Unknown | + + + | Race | Unknown | + + + | Ethnic Group | Unknown | + + + Author + + + | Author | [facility] | | | and [place] | + + + | Organization | [facility] | | | and [place] [...] Team Providers + +------+ + | Care Equipment Oiler Name | Role | Phone | + +------+ + PCP | Unavailable | + +------+ + Encounter Details +--------+ + + + + | Date | Type | Department | Care Team | Description | +--------+ + + + + | 11/04/ | Abstract | [facility] | Flakito Colon, | | | 2013 | | PHYSIATRY [address] | MD [address] | | | | | [address] | [place], [place] | | | | | [place], [place] | [address] | | | | | [id number] | | | | | | [phone] | | | +--------+ + + + [...]
[~2019-10-03 21:43] MED LIST: CELEBREX100 MG PO; ZOLOFT100 MG PO
--- OUTSIDE RECORDS SUMMARY | 2019-10-03 21:46 | XMS ---
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 Care History Medical/Surgical 05/05/2019 [facility] \T\middot;\T\nbsp; PATIENT- [facility] ELIGIBLE \T\middot;\T\nbsp; PLEASE REFER PATIENT TO [facility] FOR NON EMERGENT MEDICAL NEEDS. \T\middot;\ T\nbsp; [facility] CAN SEE PATIENTS SAME DAY FOR APTS IF PATIENT CALLS FIRST THING IN THE MORNING. E.D. VISIT COUNT (12 MO.) 2 [facility] TOTAL 2 NOTE: Visits indicate total known visits. ED/UCC VISIT TRACKING (12 MO.) 10/03/2019 21:44 [facility] [place] TYPE: Emergency COMPLAINT: - ALLERGIC REACTION 05/04/2019 19:18 [facility] [place] TYPE: Emergency COMPLAINT: - LEFT ARM INJURY DIAGNOSES: - Major depressive disorder, single episode, unspecified - Contusion of left elbow, initial encounter - Other termination clerk (current) drug therapy - Fall on same level, unspecified, initial encounter INPATIENT VISIT TRACKING (12 MO.) No inpatient visits to display in this time frame [email or web address]
== END 2019-10-03 23:41 | disposition home or self-care (01) ==
LOC: ED 21:43
DX: T63.441A Toxic effect of venom of bees, accidental (unintentional), initial encounter (principal); M79.89 Other specified soft tissue disorders
CPT/HCPCS: 99282